=== PATIENT | female | born 1995 | race American Indian/Alaskan Native ===

== ENCOUNTER 2018-02-24 08:33 | Emergency (ER) | payer OTHER, MEDICAID ==
[2018-02-24 09:14] VITALS: BMI 18.3
[2018-02-24 09:19] VITALS: BP 117/81; PULSE 71; RESP 20; TEMP 99.7; O2SAT 100
[2018-02-24] MEDS ORDERED: Naproxen 550 mg Tab PO STA (09:55)
[2018-02-24] MEDS ORDERED: Naproxen 550 mg Tab PO ONE (10:25)
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
--- NOTE | 2018-02-24 10:42 | RAD ---
PROCEDURE: Cervical Spine Radiographs. HISTORY: Pain. COMPARISON: None. FINDINGS: BONES: Reversal of the anatomic lordosis with kyphosis. Degree: Mild. DISC SPACES: Normal. SOFT TISSUES: Normal. No prevertebral soft tissue swelling. OTHER FINDINGS: None. IMPRESSION: Mild kyphosis replacing anatomic lordosis. Otherwise unremarkable study. Concordant results with the preliminary interpretation rendered by the emergency department physician procedure.
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
== END 2018-02-24 10:50 | disposition home or self-care (01) ==
LOC: C.ER 08:33
DX: S13.4XXA Sprain of ligaments of cervical spine, initial encounter (principal); S23.3XXA Sprain of ligaments of thoracic spine, initial encounter; V43.62XA Car passenger injured in collision with other type car in traffic accident, initial encounter